=== PATIENT | male | born 1990 | race Caucasian/White ===

== ENCOUNTER 2017-09-21 22:56 | Emergency (ER) | payer SELFPAY ==
[~2017-09-21] VITALS: Ht 177.8 cm; Wt 93.0 kg
[2017-09-21 23:00] VITALS: Ht 177.8 cm; Wt 93.0 kg
--- NOTE | 2017-09-22 00:34 | ERD ---
ER Documentation Chief Complaint Chief Complaint Lower back pain, abcess x 2 days HPI 26-year-old male, previously healthy, presents to the emergency department complaining of a 2 days with progressive pain over the sacrum area, associated with localized edema and erythema. No treatment attempted at this time, no fever, chills, no abdominal pain. No history of previous episodes. ROS A 12-point review of systems was performed and negative other than presented in the history of present illness. SYSTEMIC symptoms: no fever, chills, no night sweats, no weight loss EYE symptoms: No blurred vision, no eye discharge OTOLARYNGEAL symptoms: No hearing loss. No ear pain, no sore throat CARDIOVASCULAR symptoms: No chest pain or discomfort, no palpitations. PULMONARY symptoms: No dyspnea, no cough, no wheezing. GASTROINTESTINAL symptoms: No abdominal pain, no nausea, no vomiting, no diarrhea MUSCULOSKELETAL symptoms: No arthralgias, no muscle aches. NEUROLOGY symptoms: No confusion, no syncope, no numbness or tingling. SKIN: Per HPI Medications Home Meds Active Scripts Hydrocodone/Acetaminophen ([place] 5-325 Tablet) 1 Each Tablet, 1 TAB PO Q6H Y for PAIN, #7 TAB Prov:CONSTANTIN ESCAMILLA MD 09/22/17 Ibuprofen* (Motrin*) 600 Mg Tab, 600 MG PO Q8 Y for prn, #20 TAB Prov:CONSTANTIN ESCAMILLA MD 09/22/17 Cephalexin* (Keflex*) 500 Mg Capsule, 500 MG PO BID for 5 Days, #10 CAP Prov:CONSTANTIN ESCAMILLA MD 09/22/17 Sulfamethoxazole/Trimethoprim* (Bactrim Ds* Tablet) 1 Each Tablet, 1 TAB PO DAILY, #5 TAB Prov:CONSTANTIN ESCAMILLA MD 09/22/17 Allergies Allergies: Coded Allergies: No Known Allergy (Unverified , 09/21/17) PMhx/Soc Medical and Surgical Hx: pt denies Surgical Hx Hx Cardiac Disorders: Yes (DYSLIPIDEMIA) Hx Psychiatric Problems: No Hx Miscellaneous Medical Probl: No Hx Alcohol Use: Yes Hx Substance Use: No Hx Tobacco Use: No Smoking Status: Never smoker Physical Exam Vitals Vital Signs Date Time Temp Pulse Resp B/P Pulse Ox O2 Delivery O2 Flow Rate FiO2 09/22/17 02:16 98.2 88 20 Room Air 09/21/17 23:00 99.1 106 20 125/64 99 Physical Exam Patient is in no acute distress, vital signs stable. Alert and fully oriented. EYES: PERRLA, EOMI, Sclera and conjunctiva appear normal. EARS: Canals clear, tympanic membranes WNL THROAT: Normal oropharynx. NECK: Supple, No lymphadenopathy. Full ROM without pain or tenderness. HEART: RRR, no rubs, murmurs, clicks or gallops. LUNGS: Clear to auscultation. ABDOMEN: Soft, non-tender without masses or hepatosplenomegaly. Skin: Left gluteal cleft with 2 cm area of induration, tenderness and fluctuation. Procedures/MDM 26-year-old male previously healthy presents to the emergency department with tenderness, warmth and fluctuation of the sacrum area Vital signs stable, Physical exam revealed a 2 cm area of induration, tenderness , erythema. Differential diagnosis include but not limited to: Abscess, cellulitis, hemorrhoid. Low suspicion for acute systemic process. Physical examination and clinical presentation consistent most likely with pilonidal abscess. Abscess Incision and Drainage with irrigation by me: Location: Sacrum area Anesthesia: Local 1% lidocaine without epinephrine Technique: Irrigated disrupted loculation with instrumentation Packing: None Complications: None, the patient tolerated well the procedure. 48 hour wound check. Scar minimization instructions given. During the ED course the patient remained stable, no new complaints. Results and clinical impression discussed with patient who agrees with management. The patient is stable to be treated outpatient and will be discharged home with a Rx for Bactrim, cephalexin and ibuprofen, some side effects of prescribed medications (headache, rash, nausea, vomiting, diarrhea, drowsiness, habituation, bleeding, hypertension, interactions with other medications) were reviewed. The patient was instructed to follow up with the primary care provider in the next 48h. If symptoms persist, worsen or new symptoms develop, then patient should return to the ED immediately. Instructions explained and given directly by me to the patient in [Malay] with acknowledgment and demonstrated understanding. Disclaimer: Inadvertent spelling and grammatical errors are likely due to EHR/ dictation software use and do not reflect on the overall quality of patient care. Also, please note that the electronic time recorded on this note does not necessarily reflect the actual time of the patient encounter. Departure Diagnosis: Primary Impression: Pilonidal abscess Condition: Stable Additional Instructions: Call your primary care doctor TOMORROW for an appointment during the next 1-2 days. See the doctor sooner or return here if your condition worsens before your appointment time. Thank you very much for allowing us to participate in your care. Your health and safety is our top priority at [facility]. Have prescriptions filled and follow precisely the directions on the label. Follow-up with primary care provider during the next 4 days and bring all the information and medications prescribed. If illness has not improved in 2 days, then make an appointment with primary care provider. If the provider is unavailable, return to the Emergency Department immediately. CONSTANTIN ESCAMILLA MD Sep 22, 2017 00:34
[2017-09-22] MEDS ORDERED: CEPH-443 PO (01:37)
[2017-09-22] MEDS ORDERED: SULF1TAB31 PO (01:37)
[2017-09-22] MEDS ORDERED: IBUP-1542 PO (01:37)
[2017-09-22] MEDS ORDERED: HYDR-906 PO (01:37)
[2017-09-22 02:16] VITALS: PULSE 88; RESP 20; TEMP 98.2
== END 2017-09-22 02:00 | disposition home or self-care (01) ==
LOC: FTE 22:56
DX: L05.01 Pilonidal cyst with abscess (principal)